=== PATIENT | female | born 1955 | race Caucasian/White ===

== ENCOUNTER → 2024-07-23 10:38 | Outpatient (REF) | payer MEDICARE, OTHER, SELFPAY | LOC: HWRAD 10:38 | PROVIDERS: ATTENDING PHYSICIAN Internal Medicine Rheumatology; FAMILY PHYSICIAN Family Medicine | DX: Z12.31 Encounter for screening mammogram for malignant neoplasm of breast (principal); M81.0 Age-related osteoporosis without current pathological fracture; Z13.820 Encounter for screening for osteoporosis | CPT/HCPCS: 77063; 77067; 77080 ==

== ENCOUNTER 2024-09-24 11:51 | Emergency (ER) | payer MEDICARE, OTHER, SELFPAY ==
[2024-09-24 12:03] VITALS: BP 121/79
[2024-09-24 12:25] LABS: % Basophils 0.4 % (0-2); % Immature Granulocytes 0.3 % (0-0.5); % Monocytes 9.7 % (1.7-9.3); % Neutrophils 79.6 % (42.2-75.2); Absolute Neutrophils 7.9 10^3/uL (1.4-6.5); Hematocrit 41.6 % (37.0-47.0); Hemoglobin 14.2 g/dL (12.0-16.0); Mean Corp Hgb Conc. 34.1 g/dL (33.0-37.0); Mean Corpuscular Volume 90.8 fL (81.0-99.0); Mean Platelet Volume 9.5 fL (7.4-10.4); Nucleated Red Blood Cells % 0 %; Platelet Count 142 10^3/uL (130-400); Red Blood Cell Count 4.58 10^6/uL (4.20-5.40); Red Cell Dist. Width 12.8 % (11.5-14.5); White Blood Cell Count 9.9 10^3/uL (4.8-10.8)
[2024-09-24 12:40] LABS: ALT (SGPT) 171 U/L (0-35); AST (SGOT) 85 U/L (14-36); Albumin 4.1 g/dl (3.5-5.0); Alkaline Phosphatase 165 U/L (38-126); Blood Urea Nitrogen 17 mg/dl (7-17); Calcium 9.1 mg/dl (8.4-10.2); Carbon Dioxide 25 mmol/L (22-30); Chloride 105 mmol/L (98-107); Glucose 120 mg/dl (70-99); Lipase 74 U/L (23-300); Potassium 3.9 mmol/L (3.5-5.1); Sodium 141 mmol/L (135-145); Total Bilirubin 1.1 mg/dl (0.2-1.3); Total Protein 6.4 g/dl (6.3-8.2); eGFR > 60.00
[2024-09-24 12:47] LABS: COVID-19 Antigen Negative (Negative)
[2024-09-24 14:00] VITALS: BP 115/66
--- NOTE | 2024-09-24 14:53 | ED.GENMED ---
History of Present Illness
General
Chief Complaint: Abdominal Symptoms
Source: patient
Time Seen by Provider: 09/24/24 14:25
History of Present Illness
History of Present Illness:
68-year-old female with past medical history of hypertension and GERD presenting to the emergency department for evaluation at the request of her primary care provider after patient saw her primary doctor this morning after she has been experiencing
some GI upset since late Monday evening into Monday morning with patient describing chills/rigors, loose stool, diminished p.o. intake, nausea and vomiting (the symptoms now resolved) and tactile fever. At the primary care office today patient
reports that she had significant tenderness across the lower end of her abdomen and was recommended to come to the ER for CT scan. Patient denies any known sick contacts, recent travel or recent antibiotics. She did not take anything for symptoms
prior to arrival and states she currently does not feel that she needs any medications. No other concerns presently.
Past History
Past History
ED Past Medical History: GERD, HTN, Hypercholesterolemia and Other (IBS, RA)
ED Past Surgical History: None
Social History
Tobacco: Former smoker
Alcohol: None
Drug: None
Personal:
Living: with family
Employment: Employed
Review of Systems
Review of Systems
All Other Systems: ROS reviewed and negative except as documented in HPI and ROS
Phy Exam
Physical Exam
Physical Exam:
GENERAL: Alert , in no apparent distress
EYE: clear conjunctiva b/l
HEAD: NCAT
ENT: o/p clr, mmm.
CARDIAC: Regular rate and rhythm .
LUNGS: Clear breath sounds bilaterally, no acute respiratory distress, no wheezes/rales/rhonchi
ABDOMEN: Soft, tender across the lower abdomen with tenderness mostly within the suprapubic region and left lower quadrant, no r/g, no cvat
NEUROLOGICAL: Alert and oriented
SKIN: Warm and dry, skin intact.
MUSCULOSKELETAL: No edema, well perfused.
PSYCH: Normal and appropriate interaction.
Scores
Heart Failure Risk
Heart Failure Risk Score: Not Applicable
Heart Score for Chest Pain Patients
STEMI patient?: Not applicable
Withdrawal Assessment of Alcohol
Withdrawal Assessment Completed?: Not applicable
Course
Orders/Labs/Results
Orders:
Orders
09/24/24 12:01
IV Insert/Care/Rem.- Treatment PRN
Urinalysis Reflex To Culture Urgent
Date Specimen was Collected: 09/24/24
Time Specimen was Collected: 12:01
09/24/24 12:09
COVID-19 Antigen Urgent
Source: Nasal Swab
Complete Blood Count/With Diff Urgent
Comprehensive Metabolic Panel Urgent
Lipase Urgent
Influenza A+B Rapid Molecular Urgent
[facility] Source: Nasal Swab
Specimen Description:
09/24/24 14:46
CT Abd/pelvis W Iv Cont Urgent
Comment:
Reason For Exam: generalized lower abd pain
Abnormal Lab Results
09/24/24
12:09
Absolute Neuts (auto) 7.9 H 10^3/uL
(1.4-6.5)
Absolute Lymphs (auto) 1.0 L 10^3/uL
(1.2-3.4)
Absolute Monos (auto) 1.0 H 10^3/uL
(0.1-0.6)
Neutrophils % 79.6 H %
(42.2-75.2)
Lymphocytes % 10.0 L %
(20.5-51.1)
Monocytes % 9.7 H %
(1.7-9.3)
Glucose 120 H mg/dl
(70-99)
AST 85 H U/L
(14-36)
ALT 171 H U/L
(0-35)
Alkaline Phosphatase 165 H U/L
(38-126)
09/24/24 12:09
09/24/24 12:09
Vital Signs
Initial and Last Documented VS:
Initial Vital Signs
Temp Pulse Resp BP Pulse Ox
98.5 F 68 16 121/79 97
09/24/24 12:03 09/24/24 12:03 09/24/24 12:03 09/24/24 12:03 09/24/24 12:03
Last Documented Vital Signs
Temp Pulse Resp BP Pulse Ox
97.6 F 58 16 125/66 99
09/24/24 16:00 09/24/24 16:00 09/24/24 16:00 09/24/24 16:00 09/24/24 16:00
MDM/Problems Addressed
Differential Diagnosis Includes:
Reticulitis, colitis, C. difficile colitis/infectious diarrhea, given abnormal LFTs will still consider cholecystitis/pancreatitis, appendicitis
MDM/Problems Addressed:
68-year-old female presenting the ER for evaluation of GI upset over the last 2 to 3 days, family doctor sent to the ER for further evaluation and CT imaging. Patient does have tenderness that is most pronounced within the suprapubic region and the
left lower quadrant. She is declining any medications for symptoms. CT scan ordered. Disposition pending.
*Radiology
Radiology exam reviewed: radiology read reviewed
*Pulse Oximetry
Patient hypoxic: no
*Critical Care Note
Total Time (30-74mins, 75-104mins- exclusive of procedures): Not Applicable
Data Reviewed
Review of Other/Old Records Reveals: Radiology Studies
Patient Management
Discussion with other providers: PCP
Escalation/DeEscalation of care consider admission/obs:
Patient CT scan shows acute uncomplicated sigmoid diverticulitis. She has no fever, no leukocytosis and pain is currently under control. Reasonable for outpatient follow-up with [facility] for antibiotic coverage. I did notify patient's
primary care provider via [facility] text about her workup and findings here in the emergency department and patient will follow-up with her primary care she is aware of return precautions to the ER. Otherwise stable for home.
ED Attending Note
-
Portions of this chart may have been created with voice recognition software.� Occasional wrong word or��sound alike� substitutions may have occurred due to the inherent limitations of voice recognition software.
Discharge Plan
Departure
Patient Disposition: Home (Routine Discharge)
Date of Disposition: 09/24/24
Time of Disposition: 16:16
Patient with high blood pressure during this ER visit?: No
Discharge Problem:
Sigmoid diverticulitis
Instructions: Diverticulitis - Discharge instructions
Prescriptions:
New
ciprofloxacin HCl 500 mg tablet
500 mg PO BID 10 Days Qty: 20 0RF
metronidazole 500 mg tablet
500 mg PO BID 10 Days Qty: 20 0RF
No Action
diphenhydramine-acetaminophen 1 TAB tablet
1 tab PO Q6H PRN (Reason: ' to help with sleep')
cyclobenzaprine 10 MG tablet
10 mg PO TIDPRN PRN (Reason: muscle spasm) Qty: 20 0RF
oxycodone-acetaminophen 5 MG/325 MG tablet
1 tab PO Q4HPRN PRN (Reason: pain) Qty: 15 0RF
aspirin 81 MG tablet,chewable
81 mg PO DAILY Qty: 20 0RF
levofloxacin 500 MG tablet
500 mg PO DAILY Qty: 9 0RF
metronidazole 500 MG tablet
500 mg PO TID Qty: 29 0RF
Referrals:
Chapis Liriano MD [Family Provider] -
Interventions
Interventions:
*Risk Screen - Suicide Last Done: 09/24/24 12:03
*Neglect/Abuse Screening Last Done: 09/24/24 12:03
*ED- Fall Risk Assessment Last Done: 09/24/24 15:00
*ED COVID-19 Vaccine History Last Done: 09/24/24 15:01
*Nursing Disposition Last Done: 09/24/24 16:25
ED-Mqluhd-Xbbqrlvudq Assessment Last Done: 09/24/24 14:27
Discharge Date and Time
Print Language: GUAMANIAN
[2024-09-24 16:00] VITALS: BP 125/66
== END 2024-09-24 16:30 | disposition home or self-care (01) ==
LOC: EMR 11:51
PROVIDERS: Student in an Organized Health Care Education/Training Program; EMERGENCY PHYSICIAN Emergency Medicine; FAMILY PHYSICIAN Family Medicine
DX: K57.32 Diverticulitis of large intestine without perforation or abscess without bleeding (principal); K30 Functional dyspepsia; Z11.52 Encounter for screening for COVID-19; I10 Essential (primary) hypertension; E78.00 Pure hypercholesterolemia, unspecified; K58.9 Irritable bowel syndrome, unspecified; M06.9 Rheumatoid arthritis, unspecified; K21.9 Gastro-esophageal reflux disease without esophagitis; Z87.891 Personal history of nicotine dependence; Z79.82 Long term (current) use of aspirin; Z88.1 Allergy status to other antibiotic agents
CPT/HCPCS: 99284; 74177; 80053; 83690; 85025; 87502; 87811; Q9967

== ENCOUNTER → 2024-09-26 09:24 | Outpatient (REF) | payer MEDICARE, OTHER, SELFPAY | LOC: REG 09:24 | PROVIDERS: ATTENDING PHYSICIAN Physician Assistant; FAMILY PHYSICIAN Family Medicine | DX: R10.9 Unspecified abdominal pain (principal) | CPT/HCPCS: 74019 ==

== ENCOUNTER → 2024-10-15 10:33 | Outpatient (REF) | payer MEDICARE, OTHER, SELFPAY | LOC: HWRAD 10:33 | PROVIDERS: ATTENDING PHYSICIAN Internal Medicine Rheumatology; FAMILY PHYSICIAN Family Medicine | DX: M05.9 Rheumatoid arthritis with rheumatoid factor, unspecified (principal); M54.59 Other low back pain | CPT/HCPCS: 72114; 73130; 73630 ==

== ENCOUNTER → 2025-04-04 07:55 | Outpatient (REF) | payer MEDICARE, OTHER, SELFPAY ==
[2025-04-04 09:09] LABS: Hematocrit 41.8 % (37.0-47.0); Hemoglobin 14.0 g/dL (12.0-16.0); Mean Corp Hgb Conc. 33.5 g/dL (33.0-37.0); Mean Corpuscular Volume 92.7 fL (81.0-99.0); Nucleated Red Blood Cells % 0 %; Platelet Count 254 10^3/uL (130-400); Red Cell Dist. Width 12.7 % (11.5-14.5)
[2025-04-04 09:36] LABS: ALT (SGPT) 54 U/L (0-35); AST (SGOT) 33 U/L (14-36); Albumin 4.3 g/dl (3.5-5.0); Alkaline Phosphatase 98 U/L (38-126); Blood Urea Nitrogen 16 mg/dl (7-17); Calcium 9.5 mg/dl (8.4-10.2); Carbon Dioxide 31 mmol/L (22-30); Chloride 105 mmol/L (98-107); Glucose 87 mg/dl (70-99); HDL Cholesterol 49 mg/dl; LDL Cholesterol, Calculated 107 mg/dl; Potassium 4.4 mmol/L (3.5-5.1); Sodium 140 mmol/L (135-145); Total Protein 6.3 g/dl (6.3-8.2); Very Low Density Lipoprotein 32 mg/dl (0-30); eGFR > 60.00
== END ==
LOC: REG 07:55
PROVIDERS: ATTENDING PHYSICIAN Family Medicine
DX: M05.49 Rheumatoid myopathy with rheumatoid arthritis of multiple sites (principal); K21.9 Gastro-esophageal reflux disease without esophagitis; I10 Essential (primary) hypertension; E78.00 Pure hypercholesterolemia, unspecified; M06.9 Rheumatoid arthritis, unspecified
CPT/HCPCS: 36415; 80053; 80061; 85025